=== PATIENT | female | born 1990 | race Caucasian/White ===

== ENCOUNTER 2018-12-16 03:24 | Emergency (ER) | payer BC ==
[~2018-12-16] VITALS: Ht 152.4 cm; Wt 77.3 kg
[2018-12-16 03:32] VITALS: Ht 152.4 cm; Wt 77.3 kg
[2018-12-16] MEDS ORDERED: KETOROLAC 15 MG INJ IM STA (04:29)
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
[2018-12-16] MEDS ORDERED: IBUP-1542 PO ×2 (05:52→12:38)
[2018-12-16] MEDS ORDERED: ACET325T33 PO ×2 (05:52→12:38)
[2018-12-16] MEDS ORDERED: BACL10TA PO ×2 (05:52→12:38)
[2018-12-16] MEDS ORDERED: morphine 4 MG/ML VIAL IV STA (08:27)
[2018-12-16] MEDS ORDERED: ONDANSETRON (ODT) 4 MG TAB ODT STA (08:41)
[2018-12-16] MEDS ORDERED: SOD CHLORIDE 0.9% 1,000 ML IV STA (08:44)
[2018-12-16 13:33] VITALS: BP 113/70; PULSE 95; RESP 18
== END 2018-12-16 13:39 | disposition home or self-care (01) ==
LOC: FTE 03:24 → EDBD 03:24 → FTE 13:39
DX: M54.2 Cervicalgia (principal); M54.9 Dorsalgia, unspecified
CPT/HCPCS: 36415; 72125; 72128; 72131; 72149; 80053; 81001; 84703; 85025; 96361; 96372; 96374; 99285; J1885; J2270; J7030